=== PATIENT | female | born 1935 | race Caucasian/White ===

== ENCOUNTER → 2019-05-10 | Outpatient (CLI) | payer MEDICARE, BC ==
--- NOTE | 2019-05-10 15:33 | Diagnostic Imaging Report ---
INDICATION: Feet swelling and congestive heart failure. TIME OF EXAM: 02:26 p.m. COMPARISON: No prior studies available for comparison. FINDINGS: The heart is enlarged. There is some ectasia and tortuosity of the descending thoracic aorta. There are some central congestive changes noted but no overt failure. No effusion or pneumothorax is seen. IMPRESSION: Cardiomegaly and central congestion. Dictated by: Dictated on workstation # [id number]
== END ==
LOC: RAD 14:13
PROVIDERS: ATTEND Pediatrics
DX: I51.7 Cardiomegaly (principal); I50.32 Chronic diastolic (congestive) heart failure
CPT/HCPCS: 71046

== ENCOUNTER 2019-05-12 11:45 | Outpatient (CLI) | payer MEDICARE, BC ==
[2019-05-12] VITALS (8 sets, daily range): BP systolic 145–176; BP diastolic 64–76
[2019-05-12] MEDS ORDERED: NS IV 500 ML 500 ML ONE (12:56)
[2019-05-12] MEDS ORDERED: NS IV 500 ML 500 ML IV ONE (13:45)
[2019-05-12 17:55] LABS: HEMOGLOBIN 8.3 G/DL (11.5-16.0)
== END 2019-05-12 18:05 | disposition home or self-care (01) ==
LOC: SDC 11:45
PROVIDERS: ATTEND Pediatrics
DX: D64.9 Anemia, unspecified (principal)
CPT/HCPCS: 36415; 36430; 85014; 85018; 86850; 86900; 86901; 86920

== ENCOUNTER → 2019-05-20 | Outpatient (CLI) | payer MEDICARE, BC ==
[2019-05-20 11:37] LABS: HEMATOCRIT 24 % (35-52); LYMPHOCYTES % (AUTO) 34 % (12-44); MEAN CORPUSCULAR HEMOGLOBIN 33 PG (25-34); MEAN CORPUSCULAR HGB CONC 33 G/DL (32-36); MEAN CORPUSCULAR VOLUME 99 FL (80-99); MEAN PLATELET VOLUME 10.5 FL (7.4-10.4); NEUTROPHILS % (AUTO) 63 % (42-75); PLATELET COUNT 155 10^3/uL (130-400); RED CELL DISTRIBUTION WIDTH 17.8 % (10.0-14.5)
[2019-05-20 11:38] LABS: BASOPHILS % (AUTO) 0 % (0-10); EOSINOPHILS % (AUTO) 2 % (0-10); LYMPHOCYTES # (AUTO) 0.7 X 10^3 (1.0-4.0); MONOCYTES % (AUTO) 2 % (0-12); NEUTROPHILS # (AUTO) 1.3 X 10^3 (1.8-7.8)
== END ==
LOC: RAD FS 11:20
PROVIDERS: ATTEND Pediatrics
DX: C80.1 Malignant (primary) neoplasm, unspecified (principal); D63.0 Anemia in neoplastic disease
CPT/HCPCS: 36415; 85025

== ENCOUNTER 2019-05-27 09:48 | Outpatient (RCR) | payer MEDICARE, BC ==
[2019-05-27 12:10] LABS: BASOPHILS % (AUTO) 0 % (0-10); EOSINOPHILS # (AUTO) 0.1 10^3/uL (0.0-0.3); EOSINOPHILS % (AUTO) 2 % (0-10); HEMATOCRIT 24 % (35-52); HEMOGLOBIN 7.6 G/DL (11.5-16.0); LYMPHOCYTES # (AUTO) 0.7 X 10^3 (1.0-4.0); LYMPHOCYTES % (AUTO) 31 % (12-44); MEAN CORPUSCULAR HEMOGLOBIN 32 PG (25-34); MEAN CORPUSCULAR HGB CONC 32 G/DL (32-36); MEAN CORPUSCULAR VOLUME 100 FL (80-99); MEAN PLATELET VOLUME 9.8 FL (7.4-10.4); MONOCYTES % (AUTO) 1 % (0-12); NEUTROPHILS # (AUTO) 1.5 X 10^3 (1.8-7.8); NEUTROPHILS % (AUTO) 65 % (42-75); PLATELET COUNT 172 10^3/uL (130-400); RED CELL DISTRIBUTION WIDTH 17.8 % (10.0-14.5); WHITE BLOOD COUNT 2.2 10^3/uL (4.3-11.0)
[2019-05-27 12:19] LABS: INR 1.2 (0.8-1.4); PROTHROMBIN TIME PATIENT 15.2 SEC (12.2-14.7)
[2019-05-27 12:27] LABS: ALBUMIN 2.6 GM/DL (3.2-4.5); BILIRUBIN,TOTAL 0.5 MG/DL (0.1-1.0); CALCIUM 8.1 MG/DL (8.5-10.1); CREATININE SERUM 2.56 MG/DL (0.60-1.30); TOTAL PROTEIN 12.6 GM/DL (6.4-8.2)
[2019-05-27 12:34] LABS: POTASSIUM 2.5 MMOL/L (3.6-5.0)
== END 2019-08-25 | disposition home or self-care (01) ==
LOC: ONC 09:48
PROVIDERS: ATTEND Internal Medicine Hematology & Oncology
DX: D64.9 Anemia, unspecified (principal); D72.819 Decreased white blood cell count, unspecified; E88.09 Other disorders of plasma-protein metabolism, not elsewhere classified; E87.6 Hypokalemia; N28.9 Disorder of kidney and ureter, unspecified; I11.0 Hypertensive heart disease with heart failure; I50.9 Heart failure, unspecified; Z88.0 Allergy status to penicillin; Z88.1 Allergy status to other antibiotic agents; Z91.041 Radiographic dye allergy status; Z91.040 Latex allergy status; Z88.2 Allergy status to sulfonamides; Z79.899 Other long term (current) drug therapy; Z86.73 Personal history of transient ischemic attack (TIA), and cerebral infarction without residual deficits
CPT/HCPCS: 36415; 80053; 82232; 82784; 83883; 84155; 84165; 85025; 85610; 85730; 99214

== ENCOUNTER 2019-06-01 07:38 | Emergency (ER) | payer MEDICARE, BC ==
[~2019-06-01] VITALS: Ht 154.9 cm; Wt 66.2 kg
--- NOTE | 2019-06-01 08:34 | ED General ---
General Chief Complaint: Dizziness/Syncope Stated Complaint: RT LEG WOUND Source of Information: Patient, Other (daughter) History of Present Illness Date Seen by Provider: Jun 01, 2019 Time Seen by Provider: 07:44 Initial Comments Patient is an 83-year-old female presenting with her daughter to the emergency department with complaints of general weakness and dizziness. She has been having this issue for the last few weeks. However today he felt that it was worse so they came to the emergency department. She has had anemia and low potassium recently and received a transfusion as well as being placed on pota ssium supplements. She follows with Dr. Esparza and he had found her to be anemic when she presented to him at the beginning of the month in his office. At that time she was having similar symptoms and he had gotten her a transfusion to help with her low hemoglobin. This had helped with her dizziness and lightheadedness. However she also has a wound on her right leg that started with a big blister on it and this popped overnight and she had an open sore now on the leg. She was unsure how to manage this. She was also worried that she might be losing blood from the wound and with her recent anemia she wanted to be seen in the emergency department. She was scheduled today to have outpatient radiology testing anyway so they came to the ED to be seen instead of just going to the Radiology department to be seen. Allergies and Home Medications Allergies Coded Allergies: iodine (Verified Allergy, Severe, Shortness of Breath, 05/12/19) SOB, HIVES levofloxacin (Verified Allergy, Severe, Vomiting, 05/12/19) N/V Penicillins (Verified Allergy, Intermediate, Angioedema, 05/12/19) Sulfa (Sulfonamide Antibiotics) (Verified Allergy, Intermediate, Rash, 05/12/19) cephalexin (Verified Allergy, Intermediate, Angioedema, 05/12/19) ciprofloxacin (Verified Allergy, Intermediate, Rash, 05/12/19) latex (Verified Allergy, Intermediate, Rash, 05/12/19) Patient Home Medication List Home Medication List Reviewed: Yes Review of Systems Review of Systems Constitutional: No chills; dizziness; No fever; malaise, weakness EENTM: No blurred vision, No hoarseness, No mouth swelling, No epistaxis, No nose congestion, No throat pain, No throat swelling Respiratory: No cough; dyspnea on exertion (chronic), short of breath (chronic, but better since having transfusion) Cardiovascular: No chest pain; edema (increased edema to BLE) Gastrointestinal: constipation, diarrhea (alternating between diarrhea and constipation); No nausea, No vomiting; other (increased gas and bloating recently) Genitourinary: decreased output Musculoskeletal: no symptoms reported Skin: see HPI Psychiatric/Neurological: Weakness (generalized) Hematologic/Lymphatic: Anemia Past Enrueaz-Qstpkm-Krtelm Hx Past Med/Social Hx: Reviewed Nursing Past Med/Soc Hx Past Medical History Cardiac: Yes (Congestive Heart Failure) Chronic Edema/Swelling, Coronary Artery Disease, Hypertension Genitourinary: Yes Renal Failure Endocrine: Yes (Grave's disease) Physical Exam Vital Signs Vital Signs - First Documented 06/01/19 07:50 Temp 98.4 Pulse 90 Resp 20 B/P (MAP) 188/82 (117) Pulse Ox 97 O2 Delivery Room Air Capillary Refill : Height, Weight, BMI Height: 0'0.00" Weight: 0lbs. 0.0oz. [id number]; BMI Method: General Appearance: No Apparent Distress, Chronically ill HEENT: Pharynx Normal; No Photophobia Neck: Non Tender, Supple Respiratory: Chest Non Tender, Lungs Clear, Decreased Breath Sounds Cardiovascular: Regular Rate, Rhythm, Normal Peripheral Pulses Gastrointestinal: Normal Bowel Sounds, No Pulsatile Mass, Non Tender, Soft Extremity: Normal Range of Motion, No Calf Tenderness, Pedal Edema (3+ pitting edema to BLE with blisters and open blister with oozing to RLE) Neurologic/Psychiatric: Alert, Oriented x3, hat binder II-XII Norm as Tested Skin: Warm/Dry, Other (open blister on RLE with oozing serosanguineous fluid) Progress/Results/Core Measures Suspected Sepsis SIRS Temperature: Pulse: Respiratory Rate: Laboratory Tests 06/01/19 08:15: White Blood Count 2.1L Blood Pressure / Mean: Laboratory Tests 06/01/19 08:15: Creatinine 7.15#H, INR Comment 1.1, Platelet Count 182, Total Bilirubin 0.5 Results/Orders Lab Results Laboratory Tests Test 06/01/19 08:15 Range/Units White Blood Count 2.1 L 4.3-11.0 10^3/uL Red Blood Count 2.24 L 4.35-5.85 10^6/uL Hemoglobin 7.5 L 11.5-16.0 G/DL Hematocrit 23 L 35-52 % Mean Corpuscular Volume 100 H 80-99 FL Mean Corpuscular Hemoglobin 33 25-34 PG Mean Corpuscular Hemoglobin Concent 33 32-36 G/DL Red Cell Distribution Width 17.7 H 10.0-14.5 % Platelet Count 182 130-400 10^3/uL Mean Platelet Volume 9.7 7.4-10.4 FL Neutrophils (%) (Auto) 69 42-75 % Lymphocytes (%) (Auto) 26 12-44 % Monocytes (%) (Auto) 2 0-12 % Eosinophils (%) (Auto) 2 0-10 % Basophils (%) (Auto) 1 0-10 % Neutrophils # (Auto) 1.5 L 1.8-7.8 X 10^3 Lymphocytes # (Auto) 0.6 L 1.0-4.0 X 10^3 Monocytes # (Auto) 0.1 0.0-1.0 X 10^3 Eosinophils # (Auto) 0.0 0.0-0.3 10^3/uL Basophils # (Auto) 0.0 0.0-0.1 10^3/uL Prothrombin Time 14.8 H 12.2-14.7 SEC INR Comment 1.1 0.8-1.4 Activated Partial Thromboplast Time 32 24-35 SEC Sodium Level 124 *L 135-145 MMOL/L Potassium Level 4.6 3.6-5.0 MMOL/L Chloride Level 90 L 98-107 MMOL/L Carbon Dioxide Level 18 L 21-32 MMOL/L Anion Gap 16 H 5-14 MMOL/L Blood Urea Nitrogen 45 H 7-18 MG/DL Creatinine 7.15 #H 0.60-1.30 MG/DL Estimat Glomerular Filtration Rate 5 BUN/Creatinine Ratio 6 Glucose Level 99 70-105 MG/DL Calcium Level 8.2 L 8.5-10.1 MG/DL Corrected Calcium 9.3 8.5-10.1 MG/DL Magnesium Level 1.7 1.6-2.4 MG/DL Total Bilirubin 0.5 0.1-1.0 MG/DL Aspartate Amino Transf (AST/SGOT) 8 5-34 U/L Alanine Aminotransferase (ALT/SGPT) 7 0-55 U/L Alkaline Phosphatase 40 40-136 U/L Troponin I < 0.30 <0.30 NG/ML Pro-B-Type Natriuretic Peptide 5538.0 H <75.0 PG/ML Total Protein 11.8 H 6.4-8.2 GM/DL Albumin 2.6 L 3.2-4.5 GM/DL My Orders Orders - CHARLES MEJIA MD Cbc With Automated Diff (06/01/19 08:14) Comprehensive Metabolic Panel (06/01/19 08:14) Chest 1 View Ap/Pa Only (06/01/19 08:14) Ekg Tracing (06/01/19 08:14) Ed Iv/Invasive Line Start (06/01/19 08:14) Monitor-Rhythm Ecg Trace Only (06/01/19 08:14) Troponin I (06/01/19 08:14) Probnp Fs (06/01/19 08:14) Ua Culture If Indicated (06/01/19 08:14) Magnesium (06/01/19 08:14) Protime With Inr (06/01/19 08:14) Partial Thromboplastin Time (06/01/19 08:14) Ns Iv 1000 Ml (Sodium Chloride 0.9%) (06/01/19 10:15) Vital Signs/I&O 06/01/19 07:50 Temp 98.4 Pulse 90 Resp 20 B/P (MAP) 188/82 (117) Pulse Ox 97 O2 Delivery Room Air Capillary Refill : Progress Note #1: Progress Note Check labs to evaluate for anemia, cardiac event or worsening heart failure, UTI, electrolyte imbalance or renal failure. CXR to evaluate for pneumonia or heart failure or mass. non adherent dressing applied to wound on RLE. Progress Note #2: Time: 08:56 Progress Note Discussed lab results with the patient and her daughter. Advised that the chemi stry is now showing that her renal function had worsened since May 27 when she last had blood work done. Her creatinine is now over 7 and her sodium is down to 124. Her hemoglobin came back on was speaking with her and was 7.5. This is stable for her. She will need to be transferred to a larger hospital but has Nephrology and oncology since the concern is that this might be secondary to her multiple myeloma and that they are working her up for think that she might have. The patient and her daughter both were asking to go to [facility] as they have had family members treated there previously and her comfortable with going to the hospital. Unfortunately [facility] where she is in the process of being worked up for the multiple myeloma does not have Nephrology available. Progress Note #3: Time: 09:16 Progress Note I placed a call to the [facility] transfer Center. I spoke with Dunia KING at the transfer center and give further details about the patient. At 925 am I completed the call and she will call back after she has talked with the physicians at about the patient. Progress Note #4: Time: 09:59 Progress Note FERNANDO Abbasi, called back from and she advised me that currently is full and awaiting discharges of patients to have any open beds. Dr. lCarice Garza is accepting the pt for transfer but until there have been discharges and a bed is available they do not have a spot for her to come to at the moment. They anticipate hopefully within the hour a bed assignment could be made and will call back as soon as that is possible. If the patient deteriorates or can not wait or be held until a bed is available at then they recommended that she be transferred to a different facility. I advised that his the time she still seems to be stable so with the patient's wishes to be transferred to will proceed with that and wait for a bed. If things change and if it will not be possible to have a bed at today it may become necessary this afternoon to look for other facilities. ECG Initial ECG Impression Date: Jun 01, 2019 Initial ECG Impression Time: 08:35 Initial ECG Rate: 85 Initial ECG Rhythm: Normal Sinus Initial ECG Comparisson: No Previous ECG Available Comment Sinus rhythm with left ventricular hypertrophy. Heart rate is 85 bpm. [place] interval 185 ms. QT interval 388 ms with the QTc [address] elevation. There is no prior tracing available for comparison. Diagnostic Imaging Diagonstic Imaging: Xray Plain Films/CT/US/NM/MRI: chest Comments NAME: RASTA LENNON MED REC#: [id number] PT STATUS: REG ER : 1935 PHYSICIAN: CHARLES MEJIA MD ADMIT DATE: 06/01/19/ER FS Draft Date of Exam:06/01/19 CHEST 1 VIEW AP/PA ONLY INDICATION: Dizziness. COMPARISON: 05/10/2019 FINDINGS: Single frontal radiographic view of the chest was obtained and again demonstrates moderate cardiomegaly. Pulmonary vasculature, however, is within normal limits. Lungs are clear. There is no focal consolidation, large effusion, nor pneumothorax. Osseous structures show no gross acute abnormalities. IMPRESSION: 1. Moderate cardiomegaly, but no evidence of failure or focal infiltrate. Dictated on workstation # [id number] Dict: 06/01/19 0835 Trans: 06/01/19 0842 [facility] [id number] Interpreted by: JEANINE HUANG MD Electronically signed by: Departure Impression Primary Impression: Acute renal failure Qualified Codes: N17.9 - Acute kidney failure, unspecified Additional Impressions: Anemia Qualified Codes: D64.9 - Anemia, unspecified Hyponatremia Blister of right leg without infection Qualified Codes: S80.821A - Blister (nonthermal), right lower leg, initial encounter Disposition: XFER SHT-TRM HOSP Condition: Stable Transfer Time Spoke to Accepting Phy: 09:59 Transfer Progress Notes [id number] FERNANDO Abbasi, from transfer center at [facility] called and gave Dr. Clarice Garza as the accepting attending for the patient for transfer. However, it may be an hour or more for a bed assignment due to the hospital being full and they are waiting on discharges to be able to have a bed assignment to be made for Mrs. Lennon. If it will take too long or she decompensates than she may need to be transferred to a different facility, but the pt and family wish to go to so will plan to wait for a bed to come open there. Transfer Facility: [facility] Method of Transfer: EMS Departure-Patient Inst. Referrals: DEBBIE ESPARZA MD (PCP/Family) Primary Care Physician CHARLES MEJIA MD Jun 01, 2019 08:33
--- NOTE | 2019-06-01 08:42 | Diagnostic Imaging Report ---
INDICATION: Dizziness. COMPARISON: 05/10/2019 FINDINGS: Single frontal radiographic view of the chest was obtained and again demonstrates moderate cardiomegaly. Pulmonary vasculature, however, is within normal limits. Lungs are clear. There is no focal consolidation, large effusion, nor pneumothorax. Osseous structures show no gross acute abnormalities. IMPRESSION: 1. Moderate cardiomegaly, but no evidence of failure or focal infiltrate. Dictated by: Dictated on workstation # [id number]
[2019-06-01 08:49] LABS: INR 1.1 (0.8-1.4); PROTHROMBIN TIME PATIENT 14.8 SEC (12.2-14.7)
[2019-06-01 08:53] LABS: BILIRUBIN,TOTAL 0.5 MG/DL (0.1-1.0); CALCIUM 8.2 MG/DL (8.5-10.1); CREATININE SERUM 7.15 MG/DL (0.60-1.30); POTASSIUM 4.6 MMOL/L (3.6-5.0)
[2019-06-01 08:54] LABS: ALBUMIN 2.6 GM/DL (3.2-4.5); TOTAL PROTEIN 11.8 GM/DL (6.4-8.2)
[2019-06-01 08:57] LABS: MAGNESIUM 1.7 MG/DL (1.6-2.4)
[2019-06-01 09:08] LABS: HEMATOCRIT 23 % (35-52); HEMOGLOBIN 7.5 G/DL (11.5-16.0); MEAN CORPUSCULAR HEMOGLOBIN 33 PG (25-34); MEAN CORPUSCULAR HGB CONC 33 G/DL (32-36); MEAN CORPUSCULAR VOLUME 100 FL (80-99); WHITE BLOOD COUNT 2.1 10^3/uL (4.3-11.0)
[2019-06-01 09:09] LABS: BASOPHILS % (AUTO) 1 % (0-10); EOSINOPHILS % (AUTO) 2 % (0-10); LYMPHOCYTES # (AUTO) 0.6 X 10^3 (1.0-4.0); LYMPHOCYTES % (AUTO) 26 % (12-44); MEAN PLATELET VOLUME 9.7 FL (7.4-10.4); MONOCYTES # (AUTO) 0.1 X 10^3 (0.0-1.0); MONOCYTES % (AUTO) 2 % (0-12); NEUTROPHILS # (AUTO) 1.5 X 10^3 (1.8-7.8); NEUTROPHILS % (AUTO) 69 % (42-75); PLATELET COUNT 182 10^3/uL (130-400); RED CELL DISTRIBUTION WIDTH 17.7 % (10.0-14.5)
[2019-06-01] MEDS ORDERED: NS IV 1000 ML 1,000 ML IV SCH (10:15)
--- NOTE | 2019-06-01 11:28 | NUR ---
SHELIA called with bed assignment. Pt will be going to [facility] room 101. Phone number: [phone] and transfer line is [phone]. Call transfer line with
[2019-06-01 12:15] VITALS: BP 151/53
== END 2019-06-01 12:21 | disposition short-term general hospital (02) ==
LOC: EDUNIT# 07:38 → ER FS 07:39
DX: S80.821A Blister (nonthermal), right lower leg, initial encounter (principal); N17.9 Acute kidney failure, unspecified; D64.9 Anemia, unspecified; E87.1 Hypo-osmolality and hyponatremia; I11.0 Hypertensive heart disease with heart failure; I50.9 Heart failure, unspecified; I25.10 Atherosclerotic heart disease of native coronary artery without angina pectoris; E05.00 Thyrotoxicosis with diffuse goiter without thyrotoxic crisis or storm; Z88.1 Allergy status to other antibiotic agents; Z88.0 Allergy status to penicillin; Z88.2 Allergy status to sulfonamides; Z88.8 Allergy status to other drugs, medicaments and biological substances; X50.1XXA Overexertion from prolonged static or awkward postures, initial encounter
CPT/HCPCS: 36415; 71045; 80053; 83735; 83880; 84484; 85025; 85610; 85730; 93005; 93041